=== PATIENT | female | born 1950 | race Caucasian/White ===

== ENCOUNTER 2023-09-17 07:35 | Outpatient (RCR) | payer MEDICARE, SELFPAY | END 2023-10-07 23:59 | disposition home or self-care (01) | LOC: SPT 07:35 | PROVIDERS: PCP Family Medicine; Visit Provider Family Medicine | DX: N81.89 Other female genital prolapse (principal) | CPT/HCPCS: 97110; 97161; 97530 ==

== ENCOUNTER 2023-10-08 06:00 | Outpatient (RCR) | payer MEDICARE, SELFPAY | END 2023-11-06 23:59 | disposition home or self-care (01) | LOC: SPT 06:00 | PROVIDERS: PCP Family Medicine; Visit Provider Family Medicine | DX: N81.89 Other female genital prolapse (principal); R39.15 Urgency of urination; N39.41 Urge incontinence | CPT/HCPCS: 97530 ==

== ENCOUNTER 2023-11-07 06:00 | Outpatient (RCR) | payer MEDICARE, SELFPAY | END 2023-12-07 23:59 | disposition home or self-care (01) | LOC: SPT 06:00 | PROVIDERS: PCP Family Medicine; Visit Provider Family Medicine | DX: N81.89 Other female genital prolapse (principal); R39.15 Urgency of urination; N39.41 Urge incontinence | CPT/HCPCS: 97530 ==

== ENCOUNTER 2024-02-18 12:40 | Outpatient (CLI) | payer MEDICARE, SELFPAY ==
--- NOTE | 2024-02-18 12:42 | MM_ITS ---
WS: [id number] BILATERAL 3D TOMOSYNTHESIS DIGITAL SCREENING MAMMOGRAPHY WITH CAD CLINICAL INFORMATION: SCREENING HISTORY: Screening mammogram. No current complaints. COMPARISON: 2022 TECHNIQUE: Bilateral CC and MLO views. FINDINGS: The breasts are composed of heterogeneous fibroglandular density tissue, which can limit the detectio n of small underlying mass lesions. No suspicious mass, asymmetry, calcifications, or architectural d istortion. No evidence of malignancy. Incidental punctate and lucent centered calcifications. MM/[place] [id number] IMPRESSION: BI-RADS: 2-Benign FOLLOW UP: 1 Year Follow-up Recommend return to annual screening mammography.
== END 2024-02-18 12:41 | disposition home or self-care (01) ==
LOC: RAD 12:41
PROVIDERS: PCP Family Medicine; Visit Provider Family Medicine
DX: Z12.31 Encounter for screening mammogram for malignant neoplasm of breast (principal); R92.333 Mammographic heterogeneous density, bilateral breasts; R92.1 Mammographic calcification found on diagnostic imaging of breast
CPT/HCPCS: 77063; 77067

== ENCOUNTER 2024-05-15 10:24 | Emergency (ER) | payer MEDICARE, OTHER, SELFPAY ==
[2024-05-15 10:38] VITALS: BP 178/93; PULSE 76; RESP 18; TEMP 36.7; O2SAT 93; BMI 34.0
--- NOTE | 2024-05-15 10:41 | CTR_ITS ---
PROCEDURE INFORMATION: Exam: CT Head Without Contrast Exam date and time: 05/15/2024 11:05 AM Age: 73 years old Clinical indication: Other: Left arm pain; Additional info: Fall, head injury TECHNIQUE: Imaging protocol: Computed tomography of the head without contrast. Radiation optimization: All CT scans at this facility use at least one of these dose optimization techniques: automated exposure control; mA and/or kV adjustment per patient size (includes targeted exams where dose is matched to clinical indication); or iterative reconstruction. COMPARISON: No relevant prior studies available. RADIATION DOSE METRICS: Total DLP (mGy-cm): 1002.69 FINDINGS: Brain: Diffuse cerebral atrophy, consistent with patient's age. No hemorrhage. Preserved sibley-white matter differentiation. Bilateral patchy cerebral white matter hypoattenuation likely on the basis of chronic microvascular ischemic change. Small calcification at the posterior right parietal cerebral white matter. Calcification of bilateral globi pallidi. No mass effect. Cerebral ventricles: Ventricles are in proportion to the degree of atrophy. Paranasal sinuses: Visualized sinuses are unremarkable. No fluid levels. Mastoid air cells: Visualized mastoid air cells are well aerated. Bones: Unremarkable. No acute fracture. Soft tissues: Unremarkable. CT/CT head wo con* [id number] IMPRESSION: No acute intracranial findings.
--- NOTE | 2024-05-15 10:41 | XR_ITS ---
WS: [id number] XR hand LT min 3V* [id number] REASON FOR EXAM: fall, injury FINDINGS: No acute fracture or dislocation. Mild narrowing of the joint spaces of the DIP and PIP joints with mild subchondral sclerosis and mild osteophytosis in the DIP joints. Similar arthropathy in the DIP joint of the thumb and the MCP joint of the thumb. [id number] articulation at the base of the thumb with significant sclerosis and erosion and bony ov ergrowth. XR/XR hand LT min 3V* [id number] IMPRESSION: No acute abnormality. 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
--- NOTE | 2024-05-15 10:41 | XR_ITS ---
WS: [id number] XR wrist LT min 3V* [id number] REASON FOR EXAM: fall, wrist injury FINDINGS: The distal radius and ulna are intact without acute fracture identified. There is a linear sclerotic line with a section of lucency in the mid body of the scaphoid. This is f elt to represent a vascular channel. There is severe osteoarthritis in the carpometacarpal joint of the thumb. XR/XR wrist LT min 3V* [id number] IMPRESSION: No acute abnormality. 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
--- NOTE | 2024-05-15 10:47 | ED_ITS ---
HPI - Extremity Problem General: Chief complaint: Extremity Injury, Upper Stated complaint: Left arm pain Time Seen by Provider: 05/15/24 10:37 History of Present Illness: 73-year-old female with a history of hyp ertension who presents to the emergency room after a fall. She was trying in a suitcase down and ended up falling onto her left wrist. She hit her head as well. Unsure if she lost consciousness. She is not on any anticoagulation. She has not have any nausea or vomiting or altered mental status afterwards. She has no head pain at this point. No obvious abrasions or bruises to her head. She does have bruising in her left hand and wrist. Primarily along the base of the thumb. She has full range of motion. No obvious deformities. Neurovascularly intact. Related Data Home Medications Medication Instructions Recorded Confirmed levothyroxine 25 mcg tablet 25 mcg PO QAM 05/15/24 05/15/24 losartan 50 mg tablet 75 mg PO DAILY 05/15/24 05/15/24 meclizine 12.5 mg tablet 12.5 mg PO TID PRN Dizziness Or 05/15/24 05/15/24 Vertigo paroxetine HCl 20 mg tablet 20 mg PO DAILY 05/15/24 05/15/24 Allergies Allergy/AdvReac Type Severity Reaction Status Date / Time Penicillins Allergy Mild ALGY-Rash Verified 09/03/23 09:46 Review of Systems Narrative: Constitutional symptoms: Negative except as documented in HPI. Skin symptoms: Negative except as documented in HPI. Eye symptoms: Negative except as documented in HPI. ENMT symptoms: Negative except as documented in HPI. Respiratory symptoms: Negative except as documented in HPI. Cardiovascular symptoms: Negative except as documented in HPI. Gastrointestinal symptoms: Negative except as documented in HPI. Genitourinary symptoms: Negative except as documented in HPI. Musculoskeletal symptoms: Negative except as documented in HPI. Neurologic symptoms: Negative except as documented in HPI. Psychiatric symptoms: Negative except as documented in HPI. Endocrine symptoms: Negative except as documented in HPI. [facility] ED [facility]: Medical History (Updated 05/15/24 @ 12:30 by Elaina Hay MD) Psychiatric care Physical Exam Narrative: EXAM NARRATIVE: General: Alert, no acute distress. Skin: Warm, dry. Head: Normocephalic, atraumatic. Neck: Supple, trachea midline. Eye: Extraocular movements are intact. Ears, nose, mouth and throat: mucosa moist. Cardiovascular: Regular, Normal peripheral perfusion. Respiratory: Lungs are clear to auscultation, respirations are non-labored, breath sounds are equal, Symmetrical chest wall expansion. Gastrointestinal: Soft, Nontender, Non distended Musculoskeletal: Bruising and swelling of the left hand in the hypothenar area and the base of the hand. This goes into the wrist. Neurovascularly intact. No obvious deformities. Neurological: Alert and oriented, No focal neurological deficit observed. Psychiatric: Cooperative, appropriate mood & affect. Course Vital Signs: Vital signs: Vital Signs Temperature 98.0 F 05/15/24 10:38 Pulse Rate 76 05/15/24 10:38 Respiratory Rate 18 05/15/24 10:38 Blood Pressure 178/93 05/15/24 10:38 Pulse Oximetry 93 05/15/24 10:38 Oxygen Delivery Me thod Room Air 05/15/24 10:38 MDM - Extremity (Nontraumatic) Medical Decision Making Medical decision making: Differential diagnosis including but not limited to and based on the above HPI, review of systems and physical exam: Elderly patient with a fall and head injury with possible loss of consciousness. Although she is not on any anticoagulation I am going to order head CT to rule out intracranial hemorrhage. Also an x-ray of her hand and wrist to rule out fractures. I reviewed the patient's medical record. X-ray of the right hand and wrist: No acute abnormalities. She has severe osteoarthritis of the left hand the base of the first metacarpal. This was reviewed and interpreted by myself the emergency room physician. I also reviewed the radiology report. CT head: No acute intracranial process. no intracranial hemorrhage, no evidence of infarct. no evidence of acute fracture.This was reviewed and interpreted by myself the ER physician. Reexamination: Patient has remained stable. She does have some tenderness at the base of her thumb but has full range of motion. We discussed follow-up with Dr. Kiran if pain persist. Radiology reports no fractures but she has some severe degenerative changes there. Assessment and plan: Fall Hand contusion Arthritis of the hand - Discharged home - Discussed plan with patient. Answered any questions. - Evaluation and treatment of this problem were appropriate in the emergency setting. Lab Data Radiology Impressions Hand X-Ray 05/15/24 10:41 IMPRESSION: No acute abnormality. 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 Head CT 05/15/24 10:41 IMPRESSION: No acute intracranial findings. Wrist X-Ray 05/15/24 10:41 IMPRESSION: No acute abnormality. 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 All radiology interpretation(s) finalized by discharge Discharge Plan Discharge Patient Disposition: Home Clinical Impression: Contusion of hand, Fall, Arthritis of hand, left Condition: Stable Prescriptions: No Action losartan 50 mg tablet 75 mg PO DAILY meclizine 12.5 mg tablet 12.5 mg PO TID PRN (Reason: Dizziness Or Vertigo) paroxetine HCl 20 mg tablet 20 mg PO DAILY levothyroxine 25 mcg tablet 25 mcg PO QAM Discharge Orders: Discharge ED (Routine); Ordered 05/15/24 Ordered By: Elaina Hay Referrals: Nidhi Blas MD [Primary Care Provider] - Kateryna Kiran MD [Physician] - 4-7 days (Please call for an appointment if the pain in your hand persists.) Discharge Diet: Usual diet Discharge Activity: Increase activity as tolerated Patient Instructions: Opioid Safety, Pain Management Activity Restrictions/Additional Instructions: Thank you for choosing [facility] for your healthcare needs today. Please realize this is an emergency room and that we are providing you with a medical screening exam and this may not be complete and all inclusive of all the testing and or work up that you may need to determine your ailment or severity of your illness. You have been screened and evaluated and felt safe for discharge. Health conditions do change or evolve sometimes and as such it is important that you follow up with your Primary Doctor to be re checked, 3-5 days is a general good time frame for follow up. You are always welcome to return to the ED for re assessment if your symptoms are worsening or you have new concerns Coding Level of Care Code ED Roaster Helper for Cheli Spaulding
[2024-05-15 13:07] VITALS: BP 169/82; PULSE 64; O2SAT 94
== END 2024-05-15 13:08 | disposition home or self-care (01) ==
PROVIDERS: Emergency Provider Emergency Medicine; PCP Family Medicine
DX: S60.229A Contusion of unspecified hand, initial encounter (principal); W19.XXXA Unspecified fall, initial encounter; M19.042 Primary osteoarthritis, left hand
CPT/HCPCS: 70450; 73110; 73130; 99284

== ENCOUNTER 2024-10-10 16:18 | Emergency (ER) | payer MEDICARE, SELFPAY ==
[2024-10-10 16:20] VITALS: BP 158/85; PULSE 70; RESP 16; TEMP 36.7; O2SAT 94
--- NOTE | 2024-10-10 16:30 | CTR_ITS ---
PROCEDURE INFORMATION: Exam: CT Head Without Contrast Exam date and time: 10/10/2024 4:34 PM Age: 74 years old Clinical indication: Stroke-like symptoms; Altered mental status/memory loss; Additional info: Symptoms of acute stroke TECHNIQUE: Imaging protocol: Computed tomography of the head without contrast. Radiation optimization: All CT scans at this facility use at least one of these dose optimization techniques: automated exposure control; mA and/or kV adjustment per patient size (includes targeted exams where dose is matched to clinical indication); or iterative reconstruction. Other technique: STROKE PROTOCOL was implemented. COMPARISON: CT head wo con* [id number] 05/15/2024 11:05 AM RADIATION DOSE METRICS: Total DLP (mGy-cm): 1004.98 FINDINGS: Brain: Similar [id number] cortical volume loss. No hemorrhage. Periventricular and subcortical white matter hypodensities likely represent chronic small vessel ischemic changes. No mass effect. Calcifications again seen along bilateral globi pallidi. No definite areas of hypoattenuation to suggest acute territorial ischemia. Cerebral ventricles: No ventriculomegaly. Paranasal sinuses: Visualized sinuses are unremarkable. No fluid levels. Mastoid air cells: Visualized mastoid air cells are well aerated. Bones: Unremarkable. No acute fracture. Soft tissues: Unremarkable. CT/CT head thrombolytic [id number] IMPRESSION: No acute intracranial abnormality. Consider MRI brain for further evaluation if symptoms persists. ASSESSMENT: ASPECTS ([facility] Stroke Program Early CT Score) is 10.
--- NOTE | 2024-10-10 16:30 | ED_ITS ---
HPI - Weakness 2 General: Chief complaint: Weakness Stated complaint: right sided weakness Time Seen by Provider: 10/10/24 16:19 Source: patient Mode of arrival: EMS Limitations: no limitations History of Present Illness: This patient made her way to the emergency department from her home. She states that she was in her normal state of health earlier today. She states she was sitting in her recliner at approximately 1230 was watching TV and then thinks that she fell asleep somewhere around 2 PM and then woke sometime after 3 PM and noted that she had numbness in her right hand and arm. She also thought she had numbness in her right upper leg and touched her face and thought that there was some numbness there as well. She states it felt like she had laid on her arm. She states the numbness in her face and leg have resolved but she still feels persistent odd numb feeling in her right hand and right arm. She denies any headache, difficulty with speech, other focal symptoms. She does not take any blood thinning medication and is treated for hypertension as well as hypothyroidism. She has never felt symptoms like this previously MD Complaint: numbness Onset (ago): hour(s) (1.5) Duration: improved Location: RUE, right hand, RLE and face Severity: mild Quality: numbness Associated symptoms: Denies chest pain, chills, dysuria, easy bruising, fever(s), nausea, syncope or vomiting Review of Systems 2 Const: Denies: fever(s) or chills Eyes: Denies: change in vision ENMT: Denies: throat pain, odynophagia, nasal discharge or nasal congestion Card: Denies: chest pain, palpitations, syncope or pre-syncope Resp: Denies: dyspnea, productive cough or non-productive cough GI: Denies: abdominal pain, nausea, vomiting or diarrhea : Denies: difficulty voiding, dysuria or urinary frequency Musc: Denies: neck pain, back pain, extremity pain or extremity swelling Skin/Breast: Denies: rash or pruritus Neuro: Reports: numbness in extremities, weakness in extremities and sensory changes Psych: Reports: depression; Denies: anxiety Mc/Lymph: Denies: easy bruising or easy bleeding Physical Exam 2 Narrative: EXAM NARRATIVE: The patient is alert she answers questions in a goal-directed fashion and does not appear to be in any acute distress. Const: COMMON NORMALS: no acute distress, patient oriented x3, no limitations, healthy appearing and alert GENERAL APPEARANCE: cooperative NUTRITIONAL APPEARANCE: overweight HENMT: COMMON NORMALS: atraumatic, moist oral mucous membranes and oropharynx normal HEAD & SCALP: atraumatic FACE & SINUS: face symmetric Eye: COMMON NORMALS: Equal, round and reactive pupils present, EOMs intact bilaterally and conjunctivae normal CONJUNCTIVA: Yes conjunctivae normal P UPIL: Yes Equal, round and reactive pupils present Neck/C-Spine: COMMON NORMALS: full ROM, no lymphadenopathy and No carotid bruits Chest: COMMONS NORMALS: normal inspection of the chest Resp: COMMON NORMALS: normal respiratory effort, No retractions, No use of accessory muscles and clear to auscultation bilaterally AUSCULTATION: clear to auscultation bilaterally Cardio: COMMON NORMALS: regular rate, regular rhythm, No murmurs present (Cardio) and Peripheral pulses 2+ throughout RATE: regular rate RHYTHM: r egular rhythm PERIPHERAL PULSES: Peripheral pulses 2+ throughout GI: COMMON NORMALS: Normal to inspection, nondistended, normoactive bowel sounds present and Soft to palpation PALPATION: Yes Soft to palpation : COMMON NORMALS: Yes no CVA tenderness BLADDER/KIDNEY EXAM: Yes no CVA tenderness Back/Pelvis: COMMON NORMALS: no CVA tenderness, thoracic and lumbar spine normal to inspection, no thoracic nor lumbar tenderness and thoraco-lumbar ROM normal Extremity: COMMON NORMALS: normal to inspection, full ROM, capillary refill normal, no calf tenderness and no pedal edema Neuro: COMMON NORMALS: patient oriented x3, moves all extremities and no focal motor deficits SENSORIUM/ORIENTATION: Yes alert CRANIAL NERVES: Yes CN normal except as noted COORDINATION/BALANCE: [id number] test normal and gpnz-zx-[id number] test normal SPEECH: speech normal GAIT: Yes Normal gait present SENSORY EXAM: Yes sensory level loss detected (Right upper extremity) MOTOR EXAM: 5/5 motor strength present throughout COORDINATION: f ekens-ea-zsls test normal and djyr-ga-jyxk test normal OTHER: NIH=1 Psych: COMMON NORMALS: mental status grossly normal and Normal thought process present THOUGHT PROCESS: Normal thought process present Skin: COMMON NORMALS: no rashes or lesions noted, no wounds and turgor normal GENERAL SKIN EXAM: no rashes or lesions noted and turgor normal Course 2 Reevaluation(s): Reevaluation #1: Dr. Puentes neurologist on-call is currently in the emergency department evaluating the patient. We discussed current situation in person. We are in agreement that she is not a thrombolysis candidate given her low NIH and a nondebilitating examination. We will attempt to accelerate her workup in the emergency department if we can get her carotid studies and her echocardiogram and she remained stable we will plan on discharging her to outpatient follow-up on lipid-lowering agents, and a daily baby aspirin. Time: 17:03 Reevaluation #2: I reexamined the patient. Her vital signs are stable and she has no other focal findings on her repeat examination. I ambulated her up and down the patel in the emergency department which she did without any assistance. Her initial getting up from sitting was notable and that she was a little lightheaded but soon as she got going and was able to keep her head looking forward she ambulated perfectly normal without any ataxia or otherwise affected gait. I reviewed and discussed her current findings and workup thus far and that it was reassuring in terms of no evidence of any carotid artery narrowing, intercranial hemorrhage or other intracranial findings and that her blood work was also reassuring other than slightly elevated total cholesterol and LDL cholesterol. I discussed plans for outpatient management and follow-up which she voiced understanding. Time: 19:43 Consultations: Consultation #1: Discussed with on-call neurologist and the appropriate timeframe after arrival regarding her presentation. Based upon her current very low NIH of 1, history of improving symptoms and otherwise clinical stability risk-benefit of thrombolysis versus continued usual care favors the latter at this time. Time: 17:02 Vital Signs: Vital signs: Vital Signs Temperature 98.0 F 10/10/24 16:20 Pulse Rate 67 10/10/24 18:39 Respiratory Rate 19 H 10/10/24 18:39 Blood Pressure 162/88 10/10/24 18:03 Pulse Oximetry 95 10/10/24 18:39 Oxygen Delivery Me thod Room Air 10/10/24 16:20 MDM - Weakness Medical Decision Making Patient presented as noted in the HPI. Initially a stroke protocol was followed because of the acute onset of her symptoms. Her CT was performed within 10 minutes of arrival and noted to be negative for any obvious midline shift intracranial hemorrhage etc. Neurology also waited in on the patient's presentation and evaluate her in the emergency department as well. NIH was 1 and given her paucity of symptoms and the risk-benefit profile we recommended against thrombolysis which she agreed. She remained clinically stable and additional workup was undertaken in the emergency department in an attempt to accelerate her evaluation to determine her stability for outpatient management. Lipid profile was obtained for baseline as well as a carotid studies which were unremarkable. Will obtain an echocardiogram with cardiology interpretation pending at the time of this dictation. She remained in sinus rhythm without any evidence of dysrhythmia while in the emergency department. She is being started on antiplatelet therapy as well as lipid-lowering agent and will be followed up by neurology. The patient is clinically stable without any evidence of ongoing additional changes in her neurologic examination or other facets of her examination and is amenable to being discharged to outpatient follow-up. Discharge and return precautions were reviewed with the patient and she voiced understanding. Lab Data I reviewed the patient's lab results. 10/10/24 16:40 10/10/24 16:[address] 10/10/24 16:30 IMPRESSION: No acute intracranial abnormality. Consider MRI brain for further evaluation if symptoms persists. ASSESSMENT: ASPECTS ([place] Stroke Program Early CT Score) is 10. ADDENDUM: 10/10/24 [id number] THIS REPORT CONTAINS FINDINGS THAT MAY BE CRITICAL TO PATIENT CARE. The findings were verbally communicated via telephone conference with ALISTAIR ALVES at 4:52 PM CDT on 10/10/2024. The findings were acknowledged and understood. Carotid Doppler Study 10/10/24 17:06 IMPRESSION: 1. No carotid arterial stenosis. 2. Antegrade flow in bilateral vertebral arteries. REFERENCES: SRU CRITERIA. The degree of internal carotid artery stenosis is based on criteria defined by the Society of Radiologists in Ultrasound (SRU). Normal is no stenosis. Mild is less than 50% stenosis. Moderate is 50-69% stenosis. Severe is greater than 69% stenosis to near occlusion. Near occlusion is a markedly narrowed lumen. Total occlusion is no detectable patent lumen. Laboratory Results WBC 5.02 10^3/uL (3.29-11.43) 10/10/24 16:40 RBC 4.44 10^6/uL (3.85-5.65) 10/10/24 16:40 Hgb 13.90 g/dL (11.27-16.99) 10/10/24 16:40 Hct 42.8 % (36-47) 10/10/24 16:40 MCV 96.4 fl (85-98) 10/10/24 16:40 MCH 31.3 pg (27-33) 10/10/24 16:40 MCHC 32.5 g/dL (30-55) 10/10/24 16:40 RDW 13.1 % (12.1-15.1) 10/10/24 16:40 Plt Count 303 10^3/cmm (157-399) 10/10/24 16:40 MPV 9.1 fL (7.4-10.4) 10/10/24 16:40 Neut % (Auto) 49.3 % 10/10/24 16:40 Lymph % (Auto) 35.1 % 10/10/24 16:40 [place] % (Auto) 8.6 % 10/10/24 16:40 Eos % (Auto) 5.6 % 10/10/24 16:40 Baso % (Auto) 1.0 % 10/10/24 16:40 Neut # (Auto) 2.48 10^3/uL (1.8-7.7) 10/10/24 16:40 Lymph # (Auto) 1.8 10^3/uL (0.8-4.8) 10/10/24 16:40 [place] # (Auto) 0.4 10^3/uL (0.2-0.9) 10/10/24 16:40 Eos # (Auto) 0.3 10^3/uL (0.0-0.8) 10/10/24 16:40 Baso # (Auto) 0.1 10^3/uL (0.0-0.1) 10/10/24 16:40 Nucleated RBC % (auto) 0 % 10/10/24 16:40 Nucleated RBCs # 0.0 /100WBC 10/10/24 16:40 PT 13.00 SECONDS (12.1-14.9) 10/10/24 16:40 INR 0.91 (0.8-1.2) 10/10/24 16:40 APTT 31.3 SECONDS (23.9-36.7) 10/10/24 16:40 Sodium 139 mmol/L (136-145) 10/10/24 16:40 Potassium 4.3 mmol/L (3.5-5.1) 10/10/24 16:40 Chloride 102 mmol/L (98-107) 10/10/24 16:40 Carbon Dioxide 28 mmol/L (22-29) 10/10/24 16:40 Anion Gap 13.3 (5-19) 10/10/24 16:40 BUN 17 mg/dL (8-23) 10/10/24 16:40 Creatinine 0.7 mg/dL (0.5-0.9) 10/10/24 16:40 GFR Calculation Not Reportable 10/10/24 16:40 Glucose 138 mg/dL (65-115) H 10/10/24 16:40 Calculated Osmolality 292 mOsm/kg (285-295) 10/10/24 16:40 Calcium 9.8 mg/dL (8.5-10.5) 10/10/24 16:40 Total Bilirubin 0.6 mg/dL (0.15-1.2) 10/10/24 16:40 AST 17 U/L (0-32) 10/10/24 16:40 ALT 14 U/L (0-33) 10/10/24 16:40 Alkaline Phosphatase 104 U/L (35-105) 10/10/24 16:40 Total Protein 7.4 g/dL (6.6-8.7) 10/10/24 16:40 Albumin 4.3 g/dL (3.5-5.2) 10/10/24 16:40 Globulin 3.1 g/dL (1.3-4.6) 10/10/24 16:40 Triglycerides 131 mg/dL (0-150) 10/10/24 16:30 Cholesterol 229 mg/dL (0-200) H 10/10/24 16:30 LDL Cholesterol, Calc 147 mg/dL (50-129) H 10/10/24 16:30 HDL Cholesterol 56 mg/dL (60-100) L 10/10/24 16:30 LDL/HDL Ratio 2.63 RATIO (0.00-3.22) 10/10/24 16:30 Cholesterol/HDL Ratio 4.09 mg/dL (0.0-4.40) 10/10/24 16:30 Urine Color Yellow (Yellow) 10/10/24 16:52 Urine Appearance Clear (CLEAR) 10/10/24 16:52 Urine pH 6 (5-7) 10/10/24 16:52 Ur Specific Wilber 1.010 (1.005-1.030) 10/10/24 16:52 Urine Protein Neg (Negative) 10/10/24 16:52 Urine Glucose (UA) Norm (Normal) 10/10/24 16:52 Urine Ketones Negative (Negative) 10/10/24 16:52 Urine Blood Neg (Negative) 10/10/24 16:52 Urine Nitrate Negative (Negative) 10/10/24 16:52 Urine Bilirubin Neg (Negative) 10/10/24 16:52 Urine Urobilinogen Neg mg/dL (Negative) 10/10/24 16:52 Ur Leukocyte Esterase Negative (Negative) 10/10/24 16:52 Urine RBC 0-2 /hpf (0-2) 10/10/24 16:52 Urine WBC 0-5 /hpf (0-5) 10/10/24 16:52 Ur Squamous Epith Cells 0-5 /hpf (0-5) 10/10/24 16:52 Amorphous Sediment Not Reportable 10/10/24 16:52 Urine Bacteria None seen /hpf (NONE) 10/10/24 16:52 Hyaline Casts 0-4 /lpf H 10/10/24 16:52 All radiology interpretation(s) finalized by discharge EKG Data EKG 1: I personally reviewed and interpreted this EKG as follows: Interpretation: Contemporaneous review of resting EKG reveals a ventricular rate of 64 bpm. Normal [place] interval, QRS duration, corrected QT interval. Normal axis. Normal sinus rhythm without any acute ST-T wave changes. She does have a right bundle branch block pattern. Discharge Plan Discharge Patient Disposition: Home Clinical Impression: TIA involving left internal carotid artery Hyperlipidemia Qualifiers: Hyperlipidemia type: unspecified Qualified Code(s): E78.5 - Hyperlipidemia, unspecified Condition: Stable Prescriptions: New rosuvastatin [Crestor] 10 mg tablet 10 mg PO DAILY Qty: 30 2RF No Action losartan 50 mg tablet 75 mg PO DAILY meclizine 12.5 mg tablet 12.5 mg PO TID PRN (Reason: Dizziness Or Vertigo) paroxetine HCl 20 mg tablet 20 mg PO DAILY levothyroxine 25 mcg tablet 25 mcg PO QAM Discharge Orders: Discharge ED (Routine); Ordered 10/10/24 Ordered By: Alistair Jhaveri Referrals: Salomón Puentes MD [Physician] - 2 weeks Nidhi Blas MD [Primary Care Provider] - 2 weeks Discharge Diet: Low Salt and Low Cholesterol Discharge Activity: Increase activity as tolerated Patient Instructions: Opioid Safety, Pain Management Activity Restrictions/Additional Instructions: As we discussed while you are in the emergency department this evening you had a mild TIA which is caused the numbness in your hand. You do not have any evidence of a heart rhythm abnormality, narrowing of your arteries to your brain and your neck or other concerning finding at this time other than slightly elevated cholesterol. We have prescribed a medicine to help keep your cholesterol lower to reduce your risk of stroke is much as possible and we also recommend that you take 81 mg of aspirin daily. You will be contacted regarding a neurology follow-up and you also should call your primary care doctor to arrange additional follow-up within the next 2 to 3 weeks. If it anytime you develop any similar or worsening symptoms such as weakness difficulty with speech difficulty with movement etc. call 911 immediately and return to the emergency department for further evaluation. Print Language: Citizen Of [place] Coding Level of Care Code ED Telephone Directory Deliverer for g Fwd Related Data Home Medications ?Medication ?Instructions ?Recorded ?Confirmed levothyroxine 25 mcg tablet 25 mcg PO QAM 05/15/2401/29 losartan 50 mg tablet 75 mg PO DAILY 05/15/2401/29 meclizine 12.5 mg tablet 12.5 mg PO TID PRN Dizziness Or 05/15/24 05/15/24 Vertigo paroxetine HCl 20 mg tablet 20 mg PO DAILY 05/15/24 Previous Rx's ?Medication ?Instructions ?Recorded rosuvastatin 10 mg tablet (Crestor) 10 mg PO DAILY #30 tabs 10/10/24 Allergies Allergy/AdvReac Type Severity Reaction Status Date / Time Penicillins Allergy Mild ALGY-Rash Verified 10/10/24 16:47 NIH stroke score NIHSS Level Of Consciousness - 1a: 0 Level Of Consciousness Questions - 1b: Both Correct Level Of Consciousness Commands - 1c: Both Correct Best Gaze - 2: Normal Visual Dupree - 3: No Visual Loss Facial Palsy - 4: Normal Motor Arm Right - 5: No Drift Motor Arm Left - 5: No Drift Motor Leg Right - 6: No Drift Motor Leg Left - 6: No Drift Limb Ataxia - 7: Absent Sensory - 8: Mild To Moderate Loss Best Language - 9: No Aphasia Dysarthia - 10: Normal Extinction And Inattention - 11: 0 Score Total Score: 1
--- NOTE | 2024-10-10 16:50 | ECG_ITS ---
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 Measurements Intervals [place] Rate: 64 P: 59 MS: 166 QRS: 72 QRSD: 146 T: 14 QT: 410 QTc: 423 Interpretive Statements SINUS RHYTHM RIGHT BUNDLE BRANCH BLOCK [120+ ms QRS DURATION, UPRIGHT V1, 40+ ms S IN I/aVL/V4/V5/V6] No previous ECG available for comparison Electronically Signed On 10-11-2024 18:15:46 CDT by Damian Almeida M.D. [email or web address]
[2024-10-10 16:57] LABS: Basophils # 0.1 10^3/uL (0.0-0.1); Eosinophils # 0.3 10^3/uL (0.0-0.8); Eosinophils % 5.6 %; Hematocrit 42.8 % (36-47); Lymphocytes # 1.8 10^3/uL (0.8-4.8); Lymphocytes % 35.1 %; Mean Corpuscular HGB Conc 32.5 g/dL (30-55); Mean Corpuscular Hemoglobin 31.3 pg (27-33); Mean Corpuscular Volume 96.4 fl (85-98); Mean Platelet Volume 9.1 fL (7.4-10.4); Monocytes # 0.4 10^3/uL (0.2-0.9); Monocytes % 8.6 %; Neutrophils # 2.48 10^3/uL (1.8-7.7); Neutrophils % 49.3 %; Nucleated Red Blood Cells % 0 %; Platelet Count 303 10^3/cmm (157-399); Red Blood Count 4.44 10^6/uL (3.85-5.65); Red Cell Distribution Width 13.1 % (12.1-15.1); White Blood Count 5.02 10^3/uL (3.29-11.43)
--- NOTE | 2024-10-10 17:06 | USR_ITS ---
PROCEDURE INFORMATION: Exam: US Duplex Bilateral Extracranial Arteries; Complete; Carotid Arteries Exam date and time: 10/10/2024 6:23 PM Age: 74 years old Clinical indication: Other: TIA; Additional info: TIA accelerated work up TECHNIQUE: Imaging protocol: Real-time duplex ultrasound scan of the bilateral extracranial arteries combining sibley scale, color Doppler and spectral waveform analysis with image documentation. Complete exam. Exam focused on the carotid arteries. COMPARISON: CT head thrombolytic [id number] 10/10/2024 4:34 PM FINDINGS: Right common carotid artery: Unremarkable. No occlusion or stenosis. Waveforms are normal. Peak systolic velocity 54-98 cm/s. Right internal carotid artery: Unremarkable. No occlusion or stenosis. Waveforms are normal. Peak systolic velocity 43-62 cm/s. Right ICA/CCA ratio: 0.8, within normal limits. Right external carotid artery: No stenosis in the origin. Peak systolic velocity 75 cm/s. Right vertebral artery: Unremarkable. Antegrade flow. Peak systolic velocity 66 cm/s. Left common carotid artery: Unremarkable. No occlusion or stenosis. Waveforms are normal. Peak systolic velocity 71-88 cm/s. Left internal carotid artery: Unremarkable. No occlusion or stenosis. Waveforms are normal. Peak systolic velocity 50-56 cm/s. Left ICA/CCA ratio: 0.6, within normal limits. Left external carotid artery: No stenosis in the origin. Peak systolic velocity 60 cm/s. Left vertebral artery: Unremarkable. Antegrade flow. Peak systolic velocity 74 cm/s. US/CV carotid duplex BI* [id number] IMPRESSION: 1. No carotid arterial stenosis. 2. Antegrade flow in bilateral vertebral arteries. REFERENCES: SRU CRITERIA. The degree of internal carotid artery stenosis is based on criteria defined by the Society of Radiologists in Ultrasound (SRU). Normal is no stenosis. Mild is less than 50% stenosis. Moderate is 50-69% stenosis. Severe is greater than 69% stenosis to near occlusion. Near occlusion is a markedly narrowed lumen. Total occlusion is no detectable patent lumen.
--- NOTE | 2024-10-10 17:06 | USCV_ITS ---
Lloyd Adame Age: 74 Gender: F : 1950 Exam Date: 10/10/2024 18:11 Ordering Phys: Alistair Jhaveri DO Technologist: ALEX [place]am Location[place] [facility] [place]: TIA BP: 158 / 85 HR: 66 Rhythm: Sinus Technical Quality: Adequate MEASUREMENTS (Male / Female) Normal Values 2D ECHO LV Diastolic Diameter PLAX 4.9 cm 4.2 - 5.9 / 3.9 - 5.3 cm IVS Diastolic Thickness 1.0 cm 0.6 - 1.0 / 0.6 - 0.9 cm IVS Systolic Thickness 1.6 cm LVPW Diastolic Thickness 1.6 cm 0.6 - 1.0 / 0.6 - 0.9 cm LVPW Systolic Thickness 1.4 cm LVOT Diameter 1.8 cm LV Ejection Fraction 2D Teich 72.6 % LV Ejection Fraction MOD 4C 54.3 % LV Ejection Fraction MOD 2C 66.3 % LV Ejection Fraction 2C AL 67.2 % LA Diameter 3.6 cm RA Systolic Volume 4C AL 25.2 ml RA Systolic Volume 4C MOD 24.5 ml LA Sys Volume AL 41.5 cm cubed LA Sys Volume Index AL 21.5 cm cubed/m squared Aorta at Sinotubular Diameter 2.5 cm M-MODE LA Ao Ratio MM 1.7 AV Cusp Separation MM 1.2 cm DOPPLER AV Peak Velocity 141.0 cm/s LVOT Peak Velocity 81.0 cm/s AV Area Cont Eq vti 1.3 cm squared AV Area Cont Eq pk 1.4 cm squared MV Peak Velocity 139.0 cm/s MV Area PHT 4.2 cm squared Mitral E to A Ratio 1.0 TR Peak Velocity 195.0 cm/s TR Peak Gradient 15.2 mmHg TV Peak E Velocity 71.0 cm/s PV Peak Velocity 104.0 cm/s FINDINGS Left Ventricle Normal left ventricular size, systolic function and wall thickness, with no regional wall motion abnormalities. Left ventricular ejection fraction is estimated at 60 %. Grade I/IV diastolic dysfunction (abnormal relaxation filling pattern), normal to mildly elevated filling pressures. Right Ventricle The right ventricle is normal in size and function. Right Atrium The right atrium is normal in size. Left Atrium Moderately increased left atrial size. Mitral Valve Mild mitral valve regurgitation. Aortic Valve Mild aortic valve calcification. No aortic valve stenosis. No aortic valve regurgitation. Tricuspid Valve Structurally normal tricuspid valve without significant stenosis or regurgitation. Pulmonary artery systolic pressure is normal. Pulmonic Valve Pulmonic valve not well visualized. Pericardium Normal pericardium without effusion. Aorta Normal ascending aorta dimension. IVC The inferior vena cava appears normal. CONCLUSIONS Normal left ventricular size, systolic function and wall thickness, with no regional wall motion abnormalities. Left ventricular ejection fraction is estimated at 60 %. Grade I/IV diastolic dysfunction (abnormal relaxation filling pattern), normal to mildly elevated filling pressures. Moderately increased left atrial size. Mild mitral valve regurgitation. There is no pericardial effusion. Right atrial pressure is around 5 mm of mercury. Coni Chu MD (Electronically Signed) Final Date: 10 October 2024 21:50 S
[2024-10-10 17:11] LABS: INR 0.91 (0.8-1.2)
[2024-10-10 17:12] LABS: Partial Thromboplastin Time 31.3 SECONDS (23.9-36.7)
--- NOTE | 2024-10-10 17:12 | PM.CONSULT ---
Providers/Reason For Consult Consulting Physician/Specialty*: Salomón Puentes MD neurology and epilepsy Reason for Consult*: Acute care/code stroke emergency department room #4 Primary Care Provider: Nidhi Blas MD History of Present Illness History of Present Illness Lloyd Adame is a 74 year old female with a history of hypothyroidism. The patient was reported last known well around 2 PM on 10/10/2024. She states she was sitting in her recliner at approximately 1230 was watching TV and then thinks that she fell asleep somewhere around 2 PM and then woke sometime after 3 PM and noted that she had numbness in her right hand and arm. She also thought she had numbness in her right upper leg and touched her face and thought that there was some numbness there as well. She states it felt like she had laid on her arm. She states the numbness in her face and leg have resolved but she still feels persistent odd numb feeling in her right hand and right arm. She denies any headache, difficulty with speech, other focal symptoms. She does not take any blood thinning medication and is treated for hypertension as well as hypothyroidism. She has never felt symptoms like this previously. The patient also reports a history of insomnia and stated that her family physician had set her up for a sleep study. NIH stroke score = 1 (secondary to reported numbness in her right hand) Stat noncontrast head CT negative for acute findings Point of contact glucose Accu-Chek not available for review Serum glucose pending Drug allergies: Penicillins which resulted in a rash Current medications: Synthroid 25 mcg p.o. daily Losartan 25 mg p.o. daily Meclizine 12.5 mg p.o. 3 times daily as needed for dizziness or vertigo related to inner ear fluid Paxil 20 mg p.o. daily Tylenol 325 mg p.o. nightly as needed for sleep Past medical history: Insomnia Inner ear fluid Hypertension Hypothyroidism Habits: None Family history: Remarkable for a mother who experienced a stroke Social history: The patient lives alone but stated she stays approximately [address] [facility] Review of Systems General: Reports: 10 or more systems reviewed and unremarkable except in HPI and below Medications/Allergies Home Medications ?Medication ?Instructions ?Recorded ?Confirmed ?Last Taken ?Type levothyroxine 25 mcg tablet 25 mcg PO QAM 1105/15/24 05/15/24 History losartan 50 mg tablet 75 mg PO DAILY 05/15/24 05/15/24 05/15/24 History meclizine 12.5 mg tablet 12.5 mg PO TID PRN Dizziness Or 05/15/24 05/15/24 Unknown History Vertigo paroxetine HCl 20 mg tablet 20 mg PO DAILY 05/15/24 05/15/24 05/15/24 History Allergies Allergy/AdvReac Type Severity Reaction Status Date / Time Penicillins Allergy Mild ALGY-Rash Verified 10/10/24 16:47 Vitals/I&O/Wt Last Vital Signs Temp 98.0 F 10/10/24 16:20 Pulse 70 10/10/24 16:20 Resp 16 10/10/24 16:20 BP 158/85 10/10/24 16:20 Pulse Ox 94 10/10/24 16:20 O2 Del Method Room Air 10/10/24 16:20 10/10/24 10/10/24 10/10/24 06:59 14:59 22:59 Intake Total 0 / 0 Balance 0 / 0 Weight last 48 hrs Weight 184 lb Physical Exam Narrative: NIH stroke score = 1 (secondary to reported numbness in her right hand) Stat noncontrast head CT negative for acute findings Point of contact glucose Accu-Chek not available for review Serum glucose 10/10/2024 results pending at the time of this dictation The patient is alert and oriented x 3. Speech fluent. Head normocephalic. Neck supple. Cranial nerves II through XII intact pupils 4 mm round reactive to light and accommodation. Extraocular movements intact. Motor testing 5/5 bilaterally. There was no drift. There was no signs of ataxia. Visual grover appear to be full via confrontation. There were no nystagmus. Deep tendon reflexes reveal plantar responses bilaterally. There was no clonus. Sensory examination revealed decreased sensation right hand. Sensation was intact in all other extremities. Throat clear. Lungs clear. Heart regular rhythm and rate. Extremities were negative for cyanosis. Data 10/10/24 16:40 10/10/24 16:40 A&P Assessment and plan (1) TIA involving left internal carotid artery: Impression: 1. Left cerebral TIA versus minor stroke, symptoms rapidly improving with only residual right hand numbness with NIH stroke score =1. Although the patient's last known well was approximately2 PM on 10/10/2024 the patient's symptoms have rapidly improved with only some residual numbness in the right hand with NIH stroke score =1, therefore the patient was not a candidate for intravenous thrombolytics and no intravenous thrombolytics were administered. Plan: 1. Aspirin 325 mg p.o. every morning with food, first dose now in the emergency department 2. Crestor 10 mg p.o. nightly for stroke prophylaxis per NIH stroke protocol 3. Potential side effects of aspirin and Crestor were discussed with the patient 4. I was informed by Dr. Jhaveri, ER physician that there are no beds available at [facility] therefore patient's 2D echocardiogram and carotid duplex study to assess for cardiac causes and TIA/stroke and carotid stenosis or vertebral artery stenosis respectively will be performed on outpatient basis as soon as feasible 5. Stroke pamphlet/stroke information to be given to patient 6. Agree with obtaining lipid profile 7. Since the patient only lives 10 minutes away, patient was instructed to return to the [facility] emergency department if her symptoms return or worsen PDMP PDMP Reviewed: Not Reviewed Consult Attestations Medical Necessity Statement: The patient was evaluated by neurology for acute care/code stroke emergency department room #4 Coding Level of Care Code 83404 Diagnoses TIA involving left internal carotid artery G45.1
[2024-10-10 17:13] LABS: Bacteria Urine None Seen /hpf; Hyaline Casts Urine 0-4 /lpf; RBC Urine 0-2 /hpf (0-2); Squamous Epithelial Cell Urine 0-5 /hpf (0-5); WBC Urine 0-5 /hpf (0-5)
[2024-10-10 17:17] LABS: Alanine Aminotransferase 14 U/L (0-33); Albumin Level 4.3 g/dL (3.5-5.2); Alkaline Phosphatase 104 U/L (35-105); Anion Gap 13.3 (5-19); Aspartate Amino Transferase 17 U/L (0-32); Blood Urea Nitrogen 17 mg/dL (8-23); Calcium 9.8 mg/dL (8.5-10.5); Carbon Dioxide 28 mmol/L (22-29); Chloride 102 mmol/L (98-107); Creatinine Clr Calc Pharmacy 60.4481; Globulin 3.1 g/dL (1.3-4.6); Glucose 138 mg/dL (65-115); Osmolality Calculated 292 mOsm/kg (285-295); Potassium 4.3 mmol/L (3.5-5.1); Sodium 139 mmol/L (136-145); Total Bilirubin 0.6 mg/dL (0.15-1.2); Total Protein 7.4 g/dL (6.6-8.7)
[2024-10-10] MEDS: aspirin 325 mg Tablet PO (17:21)
[2024-10-10 17:30] LABS: Chol HDL Ratio 4.09 mg/dL (0.0-4.40); Cholesterol 229 mg/dL (0-200); HDL Cholesterol 56 mg/dL (60-100); LDL Cholesterol Calculated 147 mg/dL (50-129); LDL HDL Ratio 2.63 RATIO (0.00-3.22); Triglycerides 131 mg/dL (0-150)
[2024-10-10 17:31] LABS: Add Urine Microscopic? YES; Bilirubin Urine Neg (Negative); Blood Urine Neg (Negative); Glucose Urine UA Norm (Normal); Ketones Urine Negative (Negative); Leukocyte Esterase Urine Negative (Negative); Nitrate Urine Negative (Negative); Protein Urine Neg (Negative); Urine Appearance Clear (CLEAR); Urine Color Yellow (Yellow); Urobilinogen Urine Neg (Negative); pH Urine 6 (5-7)
[2024-10-10 18:03] VITALS: BP 162/88; PULSE 64; RESP 17; O2SAT 95
[2024-10-10 18:39] VITALS: PULSE 67; RESP 19; O2SAT 95
[2024-10-13 13:42] LABS: Glucose Point of Care 125 mg/dL (70-110)
== END 2024-10-10 19:57 | disposition home or self-care (01) ==
PROVIDERS: Emergency Provider Emergency Medicine; PCP Family Medicine
DX: G45.9 Transient cerebral ischemic attack, unspecified (principal); E78.5 Hyperlipidemia, unspecified
CPT/HCPCS: 36416; 70450; 80053; 80061; 81001; 82962; 85025; 85610; 85730; 93005; 93306; 93880; 99285; J9999

== ENCOUNTER 2025-05-20 13:06 | Outpatient (CLI) | payer MEDICARE, OTHER, SELFPAY ==
--- NOTE | 2025-05-20 13:14 | MM_ITS ---
WS: [id number] BILATERAL 3D TOMOSYNTHESIS DIGITAL SCREENING MAMMOGRAPHY WITH CAD CLINICAL INFORMATION: SCREENING HISTORY: Screening mammogram. No current complaints. COMPARISON: 2023 TECHNIQUE: Bilateral CC and MLO views. FINDINGS: The breasts are composed of heterogeneous fibroglandular density tissue, which can limit the detection of small underlying mass lesions. No suspicious mass, asymmetry, calcifications, or architectural distortion. No evidence of malignancy. Incidental punctate and lucent centered calcifications. MM/MM [facility] tomosynthesis [id number] IMPRESSION: DENSITY: The breasts are heterogeneously dense, which may obscure small masses. BI-RADS: 2 - Benign FOLLOW UP: 1 Year Follow-up Recommend return to annual screening mammography.
== END 2025-05-20 13:07 | disposition home or self-care (01) ==
LOC: RAD 13:07
PROVIDERS: PCP Family Medicine; Visit Provider Nurse Practitioner Family
DX: Z12.31 Encounter for screening mammogram for malignant neoplasm of breast (principal); R92.323 Mammographic fibroglandular density, bilateral breasts; R92.1 Mammographic calcification found on diagnostic imaging of breast; R92.333 Mammographic heterogeneous density, bilateral breasts
CPT/HCPCS: 77063; 77067